=== PATIENT | female | born 1985 | race African-American/Black ===

== ENCOUNTER 2019-03-20 04:47 | Observation (INO) ==
[2019-03-20] MEDS ORDERED: SODIUM CHLORIDE 0.9% 1,000 ML IV STA (05:06)
[2019-03-20] MEDS ORDERED: KETOROLAC 10 MG TABLET PO STA (05:11)
[2019-03-20] MEDS ORDERED: MORPHINE 4 MG/1 ML VIAL IV STA (05:11)
[2019-03-20] MEDS ORDERED: ONDANSETRON 4 MG/2 ML VIAL IV ONE (05:11)
[2019-03-20 05:32] LABS: Basophils % 0.4 % (0.0-0.8); Eosinophils # 0.1 10*3/uL (0.0-0.87); Eosinophils % 0.7 % (0.00-10.9); Hematocrit 39.7 VOL% (35.7-47.0); Hemoglobin 12.9 GM/DL (12.0-16.0); Immature Granulocytes % 0.6 %; Immature Granulocytes Absolute 0.06 #; Lymphocytes # 2.4 10*3/uL (1.4-4.0); Lymphocytes % 24.8 % (21.3-54.2); Mean Corpuscular HGB Conc 32.5 GM/DL (32-36); Mean Corpuscular Volume 89.4 FL (87-102); Mean Platelet Volume 10.2 FL (9.6-12.0); Monocytes % 6.1 % (1.7-12.7); Neutrophils % 67.4 % (38.7-73.9); Platelet Count 329 T/CUMM (130-400); Red Blood Count 4.44 MC/CUMM (3.8-5.5); Red Cell Distribution Width 12.9 % (9.3-17.3); White Blood Count 9.7 T/CUMM (4-12)
[2019-03-20 06:07] LABS: Alanine Aminotransferase 41 U/L (13-56); Albumin 3.9 G/DL (3.4-5.0); Alkaline Phosphatase 61 U/L (45-117); Aspartate Amino Transferase 17 U/L (0-37); Bilirubin,Total < 0.39 MG/DL (0.2-1.0); Blood Urea Nitrogen 13 MG/DL (7-18); Calcium 8.8 MG/DL (8.5-10.1); Glucose 133 MG/DL (74-106); Osmolality,Calculated 274.8 MOS/KG (273-304); Total Protein 8.1 G/DL (6.4-8.3)
[2019-03-20 06:25] LABS: Apearance,Urine CLEAR (Clear); Bilirubin,Urine Negative (Negative); Blood, Urine Negative (Negative); Glucose,Urine (UA) Negative (Negative); Hyaline Casts,Urine 3 /LPF (0-3); Ketones,Urine 20 mg/dL (Negative); Mucus,Urine Occasional /LPF (Occasional); Nitrite,Urine Negative (Negative); Protein,Urine Negative; RBC,Urine 2 /HPF (0-4); Squamous Epithelial Cell,Urine Occasional /HPF (0-10); Urine Color Yellow (Yellow); Urine Specific Gravity 1.021 (1.001-1.035); Urine Urobilinogen < 2.0 EU/DL (0.2-1.0); WBC,Urine 1 /HPF (0-6)
[2019-03-20] MEDS ORDERED: HYDROmorphone 2 MG/1 ML VIAL IV STA ×2 (06:37→08:06)
[2019-03-20] MEDS ORDERED: KETOROLAC 30 MG/1 ML VIAL IV STA (08:06)
[2019-03-20] MEDS ORDERED: KETOROLAC 30 MG/1 ML VIAL ONE (08:07)
[2019-03-20] MEDS ORDERED: MAGNESIUM HYDROXIDE SUSP 30 ML UDCUP PO PRN (08:26)
[2019-03-20] MEDS ORDERED: ACETAMINOPHEN 325 MG TABLET PO PRN (08:26)
[2019-03-20] MEDS ORDERED: BISACODYL 10 MG SUPP RECTAL PRN (08:26)
[2019-03-20] MEDS ORDERED: ONDANSETRON 4 MG/2 ML VIAL IV PRN ×2 (08:26→12:59)
[2019-03-20] MEDS: DOCUSATE SODIUM 100 MG CAPSULE PO SCH ×2 (10:00→21:22)
[2019-03-20] MEDS: HYDROmorphone 2 MG TABLET PO PRN ×3 (10:01→21:22)
[2019-03-20] MEDS: SODIUM CHLORIDE 0.9% 1,000 ML IV SCH ×2 (10:18→19:18)
[2019-03-20] MEDS: IBUPROFEN 800 MG TABLET PO PRN ×2 (10:22→21:21)
[2019-03-20] MEDS ORDERED: HYDROmorphone 2 MG/1 ML VIAL IV PRN (12:56)
[2019-03-20] MEDS: HYDROmorphone 2 MG/1 ML VIAL IV PRN ×2 (15:39→18:59)
[2019-03-20] MEDS: PROMETHAZINE 25 MG/1 ML VIAL IM PRN (21:17)
[2019-03-21] MEDS: HYDROmorphone 2 MG/1 ML VIAL IV PRN ×11 (00:19→23:02)
[2019-03-21] MEDS: SODIUM CHLORIDE 0.9% 1,000 ML IV SCH ×4 (00:30→17:51)
[2019-03-21] MEDS ORDERED: SEVOFLURANE 1 UNIT/15 MINUTE INH ONE (11:06)
[2019-03-21] MEDS ORDERED: PROPOFOL 200 MG/20 ML VIAL IV ONE (11:06)
[2019-03-21] MEDS ORDERED: MIDAZOLAM 2 MG/2 ML VIAL ONE (11:07)
[2019-03-21] MEDS ORDERED: GLYCOPYRROLATE 0.4 MG/2 ML VIAL ONE (11:07)
[2019-03-21] MEDS ORDERED: ONDANSETRON 4 MG/2 ML VIAL ONE ×2 (11:07→11:16)
[2019-03-21] MEDS ORDERED: KETOROLAC 30 MG/1 ML VIAL ONE (11:07)
[2019-03-21] MEDS ORDERED: DEXAMETHASONE 4 MG/1 ML VIAL ONE (11:07)
[2019-03-21] MEDS ORDERED: fentaNYL 100 MCG/2 ML VIAL ONE (11:07)
[2019-03-21] MEDS ORDERED: NEOSTIGMINE 10 MG/10 ML VIAL ONE (11:08)
[2019-03-21] MEDS ORDERED: ROCURONIUM 100 MG/10 ML VIAL IV ONE (11:08)
[2019-03-21] MEDS ORDERED: SUCCINYLCHOLINE 200 MG/10 ML VIAL ONE (11:08)
[2019-03-21] MEDS ORDERED: ACETAMINOPHEN 1,000 MG/100 ML VIAL IV ONE (11:08)
[2019-03-21] MEDS ORDERED: ONDANSETRON 4 MG/2 ML VIAL IV PRN (11:14)
[2019-03-21] MEDS ORDERED: HYDROmorphone 2 MG/1 ML VIAL ONE (11:16)
[2019-03-21] MEDS: DOCUSATE SODIUM 100 MG CAPSULE PO SCH ×2 (15:47→20:57)
[2019-03-21] MEDS: oxyCODONE/ACETAMINOPHEN 5-325 MG TABLET PO PRN (17:48)
[2019-03-21] MEDS: PROMETHAZINE 25 MG/1 ML VIAL IM PRN (23:14)
[2019-03-22] MEDS: oxyCODONE/ACETAMINOPHEN 5-325 MG TABLET PO PRN ×3 (03:35→14:50)
[2019-03-22] MEDS: SODIUM CHLORIDE 0.9% 1,000 ML IV SCH ×2 (06:35→14:53)
[2019-03-22] MEDS: HYDROmorphone 2 MG/1 ML VIAL IV PRN ×4 (06:36→16:37)
[2019-03-22] MEDS: DOCUSATE SODIUM 100 MG CAPSULE PO SCH ×2 (08:45→21:36)
[2019-03-22] MEDS ORDERED: ACETAMINOPHEN/CODEINE 300-30 MG TABLET PO PRN (21:14)
[2019-03-22] MEDS: IBUPROFEN 800 MG TABLET PO PRN (21:35)
[2019-03-23 08:13] VITALS: BP 116/71
== END 2019-03-23 08:17 | disposition home or self-care (01) ==
LOC: N.ED 04:47 → N.EDINP 04:47 → N.2E 08:41
PROVIDERS: ADMIT Obstetrics & Gynecology; ATTEND Obstetrics & Gynecology